=== PATIENT | female | born 1965 ===

== ENCOUNTER 2018-04-28 15:41 | Observation (INO) ==
[2018-04-28] MEDS ORDERED: LIDOCAINE W/ SODIUM BICARB 0.5 ML SYR SUBD PRN (18:11)
[2018-04-28] MEDS ORDERED: HYDROmorphone 2 MG/1 ML IVP PRN (18:11)
--- NOTE | 2018-04-28 18:19 | PDOC ---
HPI - History of Present Illness History of Present Illness: This very nice 51-year-old female with history of alcohol abuse had an admission here earlier in the year for epigastric pain nausea and vomiting. Presented to the [facility] complaining of abdominal pain 9 out of [address] Castaneda called Dr. Bagley for EGD colonoscopy Dr. Bagley I also spoke with Dr. Bagley he said that he has a note on this patient from previous admission where he recommended EGD colonoscopy as an outpatient and this is not the treatment for nausea and vomiting she did have a K have a KUB in [place] which was negative. Apparently the patient requested to be transferred to [facility] and insisted with Dr. Castaneda the patient woke up this morning with the abdominal pain nausea and vomiting she stated that she states that really the abdominal pain and never left and she has this constant and not is as bad since last admission. CT scan abdomen and pelvis patient was unable to take by mouth contrast even with the antiemetics she states that this is a hard to live with and that it's affecting her work. Past Medical History Medical History: 1. Alcohol abuse. She lasted a 91 day residential program in [place] and got out in 2011. She's had intermittent problems with relapse since that time. 2. History of methamphetamine abuse. 3. H. pylori infection in the past treated with antibiotics presumably although details are not available for review. 4. Osteoarthritis Surgical History: 1. 2. 2. Ganglion cyst on right hand removed. 3. Tonsillectomy. 4. Cholecystectomy Pertinent Family History: Significant for colon cancer in her mother. She states her family has severe problems with alcoholism in both her parents and her siblings. She has a significant other, Mendoza. Past Social History: Smokes. Recently relapsed and started drinking alcohol a week ago. 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 Tobacco Use: Current Every Day Smoker Past Medical History Medical History: 1. Alcohol abuse. She lasted a 91 day residential program in [place] and got out in 2011. She's had intermittent problems with relapse since that time. 2. History of methamphetamine abuse. 3. H. pylori infection in the past treated with antibiotics presumably although details are not available for review. 4. Osteoarthritis Surgical History: 1. 2. 2. Ganglion cyst on right hand removed. 3. Tonsillectomy. 4. Cholecystectomy Pertinent Family History: Significant for colon cancer in her mother. She states her family has severe problems with alcoholism in both her parents and her siblings. She has a significant other, Mendoza. Past Social History: Smokes. Recently relapsed and started drinking alcohol a week ago. 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 Tobacco Use: Current Every Day Smoker In the Past 12 Months, Have Used or Abuse Any of the Following Substance: None Medication / Allergies Home Medications: Home Medications 3 Medication Instructions Recorded Confirmed Type Pantoprazole Sodium [Protonix] 40 mg PO DAILY #30 tab 12/05/17 02/07/18 Rx gabapentin 100 mg capsule 300 mg PO BID cap 02/07/18 02/07/18 History Allergies/Adverse Reactions: Allergies 3 Allergy/AdvReac Type Severity Reaction Status Date / Time No Known Allergies Allergy Verified 04/28/18 17:51 Review of Systems - Constitutional Constitutional: REPORTS: Negative System Review - Respiratory Respiratory: DENIES: Negative System Review, Cough, Sputum, Dyspnea At Rest, Dyspnea with Exertion, Pleuritic Pain, Hemoptysis, Wheezing, Other, See HPI - Cardiovascular Cardiovascular: DENIES: Negative System Review, Chest Pain, Edema, Syncope, Palpitations, Orthopnea, Paroxysmal Nocturnal Dyspnea, Other, See HPI - Gastrointestinal Gastrointestinal / Abdominal: REPORTS: Nausea, Vomiting, Abdominal Pain - Genitourinary Genitourinary: DENIES: Negative System Review, Pain, Burning, Hematuria, Incontinence, Urgency, Hesitant Stream, Decreased Stream, Nocutria, Discharge, Sexual Dysfunction, Other, See HPI - Musculoskeletal Musculoskeletal: DENIES: Negative System Review, Back Pain, Neck Pain, Joint Swelling, Calf Pain, Muscle Pain, Cramping, Joint Pain - Hands, Joint Pain - Elbows, Joint Pain - Shoulders, Joint Pain - Hips, Joint Pain - Knees, Joint Pain - Feet, AM Stiffness, Other, See HPI Exam - Vitals Vital Signs: Vital Signs Temperature 97 F Temperature Source Temporal Artery Scan Pulse Rate [Pulse Oximeter] 82 Pulse Rate 82 Respiratory Rate 18 Blood Pressure [Left Arm] 144/67 Blood Pressure 144/67 Pulse Ox 95 Oxygen Delivery Method Room Air Height 5 ft 2 in Weight 154 lb 11.2 oz - General General Appearance: No Acute Distress - Respiratory Respiratory Exam: POSITIVE: Clear to Auscultation - Bilaterally, Breathing Non Labored, Normal To Percussion, Normal to Percussion and Palpation - Cardiovascular Cardiovascular Exam: POSITIVE: RRR, No Murmur, No Clicks, No Gallops, No Rubs, PMI Non-Displaced - GI/Abdominal Additional GI/Abdominal Exam Details: No guarding or rebound some pain in the epigastric area and left lower quadrant on deep palpation - Extremities Extremities Exam: POSITIVE: No Clubbing Present, No Edema Present, No Cyanosis Present Results - Labs CBC and BMP: 04/28/18 18:35 04/28/18 18:35 Assessment and Plan - Patient Problems (1) Abdominal pain Current Visit: Yes Status: Acute Comment: Labs are normal amylase lipase and white count CT scan abdomen and pelvis no acute findings. This can definitely represent chronic pancreatitis the way is presenting with a differential diagnosis of gastritis. I will start the patient on pain medication IV fluids and antiemetics will order a small bowel follow-through for tomorrow consult surgery might also consider MRCP Code(s): R10.9 - Unspecified abdominal pain
[2018-04-28] MEDS: PANTOPRAZOLE IV 40 MG VIAL IVP SCH (18:34)
[2018-04-28] MEDS: 1/2NS + 20mEq KCL 1,000 ML PRIMARY IV SCH (18:35)
[2018-04-28 18:40] LABS: BASOPHILS # (AUTO) 0.03 10*3/UL; BASOPHILS % (AUTO) 0.5 % (0-1); EOSINOPHILS # (AUTO) 0.14 10*3/UL; EOSINOPHILS % (AUTO) 2.4 % (0-8); Hematocrit [HCT] 40.1 % (37.0-47.0); Hemoglobin [HGB] 13.5 g/dL (12.0-16.0); LYMPHOCYTES # (AUTO) 2.15 10*3/uL; MEAN CORPUSCULAR HEMOGLOBIN 32.9 PG (27-31); MEAN CORPUSCULAR HGB CONC 33.7 g/dL (33-37); MEAN CORPUSCULAR VOLUME 97.8 FL (81-99); MEAN PLATELET VOLUME 8.5 FL (7.4-12.2); MONOCYTES # (AUTO) 0.49 10*3/UL (0.3-0.8); MONOCYTES % (AUTO) 8.2 % (5-15); NEUTROPHILS # (AUTO) 3.12 10*3/UL; NEUTROPHILS % (AUTO) 52.5 % (50-80)
[2018-04-28 18:57] LABS: PLATELET MORPHOLOGY COMMENT NORMAL MORPHOLOGY (NORM); RBC MORPHOLOGY COMMENT NORMAL MORPHOLOGY (NORM); WBC MORPHOLOGY COMMENT NORMAL MORPHOLOGY (NORM)
[2018-04-28 18:58] LABS: BLOOD UREA NITROGEN 6 mg/dL (7-22)
[2018-04-28] MEDS: NICOTINE 21 MG /DAY PATCH TRANSDERM SCH (19:07)
[2018-04-28] MEDS ORDERED: HYDROmorphone 2 MG/1 ML IVP ONE (19:13)
[2018-04-28 19:40] LABS: BILIRUBIN,URINE SMALL (NEG); CLARITY,URINE CLEAR (CLEAR); COLOR,URINE YELLOW (Y); GLUCOSE, URINE (UA) NEGATIVE (NEG); OCCULT BLOOD,URINE NEGATIVE (NEG); PROTEIN,URINE NEGATIVE (NEG)
[2018-04-28 19:48] LABS: URINE SAMPLE TYPE VOIDED SPECIMEN; URINE SPECIFIC GRAVITY - MAN 1.015
[2018-04-28 19:49] LABS: SQUAMOUS EPITHELIAL CELL,UR MODERATE; URINE CASTS FEW
[2018-04-28 19:51] LABS: AMPHETAMINE SCREEN NEGATIVE (NEG); CANNABINOID SCREEN,URINE NEGATIVE (NEG); COCAINE SCREEN NEGATIVE (NEG); METHADONE URINE SCREEN NEGATIVE (NEG); METHAMPHETAMINES SCREEN,URINE NEGATIVE (NEG); OPIATE SCREEN,URINE POSITIVE (NEG)
[2018-04-28] MEDS: ONDANSETRON 4 MG/2 ML VIAL IVP PRN (20:14)
--- NOTE | 2018-04-28 20:51 | DI ---
EXAM: CT Abdomen and Pelvis With Intravenous Contrast CLINICAL HISTORY: Abdominal pain TECHNIQUE: Axial computed tomography images of the abdomen and pelvis with intravenous contrast. COMPARISON: CT abdomen and pelvis dated 12/02/2017 FINDINGS: Lung bases: Unremarkable. No mass. No consolidation. ABDOMEN: Liver: Unremarkable. Gallbladder and bile ducts: Intra-and extrahepatic bile duct dilatation likely secondary to prior cholecystectomy. Pancreas: Unremarkable. Spleen: Unremarkable. Adrenals: Unremarkable. Kidneys and ureters: Unremarkable. Stomach and bowel: Noninflamed colonic diverticulosis. PELVIS: Appendix: Appendix is unremarkable. Bladder: Unremarkable. Reproductive: Unremarkable as visualized. ABDOMEN and PELVIS: Intraperitoneal space: Unremarkable. Bones/joints: Degenerative changes of the osseous structures. No acute fracture. No dislocation. Soft tissues: Unremarkable. Vasculature: Unremarkable. No abdominal aortic aneurysm. Lymph nodes: Unremarkable. IMPRESSION: No acute findings.
[2018-04-28] MEDS ORDERED: Magnesium Sulfate 2gm (Premix) 2 GM/50 ML BAG IV ONE (21:26)
[2018-04-28] MEDS: GABAPENTIN 100 MG CAPSULE PO SCH (22:29)
[2018-04-28] MEDS: HYDROmorphone 2 MG/1 ML IVP PRN (22:40)
[2018-04-28] MEDS: Metoclopramide Inj 10 MG/2 ML VIAL IVP PRN (22:40)
[2018-04-28] MEDS: LORazepam 2 MG/1 ML VIAL IVP PRN (22:45)
[2018-04-29] MEDS: ONDANSETRON 4 MG/2 ML VIAL IVP PRN ×2 (02:58→11:46)
[2018-04-29] MEDS: 1/2NS + 20mEq KCL 1,000 ML PRIMARY IV SCH ×3 (02:59→20:02)
[2018-04-29] MEDS: HYDROmorphone 2 MG/1 ML IVP PRN ×2 (02:59→07:19)
[2018-04-29 04:41] LABS: LIPASE 54 IU/L (23-300)
[2018-04-29] MEDS: LORazepam 2 MG/1 ML VIAL IVP PRN ×3 (07:19→22:24)
[2018-04-29] MEDS: PANTOPRAZOLE IV 40 MG VIAL IVP SCH (09:27)
[2018-04-29] MEDS: GABAPENTIN 100 MG CAPSULE PO SCH ×2 (09:27→20:02)
[2018-04-29 09:38] LABS: BASOPHILS # (AUTO) 0.02 10*3/UL; BASOPHILS % (AUTO) 0.2 % (0-1); EOSINOPHILS # (AUTO) 0.11 10*3/UL; EOSINOPHILS % (AUTO) 1.3 % (0-8); Hematocrit [HCT] 39.5 % (37.0-47.0); Hemoglobin [HGB] 13.4 g/dL (12.0-16.0); LYMPHOCYTES # (AUTO) 1.85 10*3/uL; MEAN CORPUSCULAR HEMOGLOBIN 33.3 PG (27-31); MEAN CORPUSCULAR HGB CONC 33.9 g/dL (33-37); MEAN PLATELET VOLUME 8.7 FL (7.4-12.2); MONOCYTES # (AUTO) 0.61 10*3/UL (0.3-0.8); MONOCYTES % (AUTO) 7.1 % (5-15); NEUTROPHILS # (AUTO) 5.94 10*3/UL; NEUTROPHILS % (AUTO) 69.6 % (50-80); RED BLOOD COUNT 4.03 10^6/uL (4.20-5.40)
[2018-04-29 09:39] LABS: PLATELET MORPHOLOGY COMMENT NORMAL MORPHOLOGY (NORM); RBC MORPHOLOGY COMMENT NORMAL MORPHOLOGY (NORM); WBC MORPHOLOGY COMMENT NORMAL MORPHOLOGY (NORM)
[2018-04-29 09:48] LABS: BLOOD UREA NITROGEN 3 mg/dL (7-22)
[2018-04-29] MEDS ORDERED: Influenza 18-19 Vaccine (6mo+) 60 MCG/0.5 ML SYRINGE IM ONE (10:51)
--- NOTE | 2018-04-29 11:31 | PDOC(PROG) ---
Interval History: Patient states that she is feeling better nausea and vomiting have subsided she states that the Ativan really helped with this no chest pain no shortness of breath Objective : Data - Labs CBC and BMP: 04/29/18 09:32 04/29/18 09:32 Objective : Exam - General General Appearance: Cooperative - Respiratory Respiratory Exam: Clear to Auscultation - Bilaterally, Breathing Non Labored, Normal To Percussion, Normal to Percussion and Palpation - Cardiovascular Cardiovascular Exam: RRR, No Murmur, No Clicks, No Gallops, No Rubs, PMI Non- Displaced - GI/Abdominal GI/Abdominal Exam: Normal Bowel Sounds, Non Tender, Non Distended, Soft, No Masses, No Hepatomegaly, No Splenomegaly, No Organomegaly - Extremities Extremities Exam: No Clubbing Present, No Edema Present, No Cyanosis Present Assessment and Plan - Patient Problems (1) Abdominal pain Current Visit: Yes Status: Acute Comment: On physical exam no abdominal pain noted improving continue IV fluids clear liquids unable to do MRI of her pancreas this unable to do small bowel follow-through at this facility Code(s): R10.9 - Unspecified abdominal pain (2) Anxiety Current Visit: Yes Status: Acute Comment: Continue Ativan stop narcotics Code(s): F41.9 - Anxiety disorder, unspecified
[2018-04-29] MEDS ORDERED: Belladon/PHENobarbital Elixir 10 ML, Lidocaine Viscous Liquid 2% 15 ML, Mag Hyd/Al Hyd/... PO ONE ×3 (16:43)
[2018-04-29] MEDS ORDERED: LIDOCAINE 2% VISCOUS(20 MG/1 ML) - 15 ML UD CUP PO ONE (17:58)
[2018-04-29] MEDS ORDERED: BELLADONNA ALKALOIDS/PHENOBARB 32.4 MG/10 ML PO ONE (17:58)
[2018-04-29] MEDS ORDERED: MAG HYDROX/AL HYDROX/SIMETH 30 ML SUSP PO ONE (17:59)
[2018-04-29] MEDS: NICOTINE 21 MG /DAY PATCH TRANSDERM SCH (20:02)
[2018-04-30] MEDS: 1/2NS + 20mEq KCL 1,000 ML PRIMARY IV SCH (04:23)
[2018-04-30] MEDS: Metoclopramide Inj 10 MG/2 ML VIAL IVP PRN ×2 (07:01→18:33)
[2018-04-30] MEDS ORDERED: HYDROmorphone 2 MG/1 ML IVP PRN (08:49)
[2018-04-30] MEDS: PANTOPRAZOLE IV 40 MG VIAL IVP SCH (08:56)
[2018-04-30] MEDS: GABAPENTIN 100 MG CAPSULE PO SCH ×2 (08:56→20:13)
[2018-04-30] MEDS ORDERED: Lactated Ringers 1,000 ML PRIMARY IV SCH (09:15)
--- NOTE | 2018-04-30 11:47 | PDOC(PROG) ---
Interval History: Nausea and vomiting is resolved patient tolerating clears she states that she has still some mild pain in the left lower quadrant and negative on physical exam Objective : Data - Labs CBC and BMP: 04/29/18 09:32 04/29/18 09:32 Objective : Exam - General General Appearance: Cooperative - Respiratory Respiratory Exam: Clear to Auscultation - Bilaterally, Breathing Non Labored, Normal To Percussion, Normal to Percussion and Palpation - Cardiovascular Cardiovascular Exam: RRR, No Murmur, No Clicks, No Gallops, No Rubs, PMI Non- Displaced - GI/Abdominal GI/Abdominal Exam: Normal Bowel Sounds, Non Tender, Non Distended, Soft, No Masses, No Hepatomegaly, No Splenomegaly, No Organomegaly Assessment and Plan - Patient Problems (1) Abdominal pain Current Visit: Yes Status: Acute Comment: Slowly resolving left lower quadrant may be the patient has chronic pancreatitis will probably benefit from MRCP but I cannot do it until Tuesday I will add pancreatic enzymes decreased I Jennifer to 1 mg every 4 hours Code(s): R10.9 - Unspecified abdominal pain (2) Anxiety Current Visit: Yes Status: Acute Comment: Resolved I did stop the Ativan Code(s): F41.9 - Anxiety disorder, unspecified
[2018-04-30] MEDS: HYDROmorphone 2 MG/1 ML IVP PRN ×2 (12:15→18:33)
[2018-04-30] MEDS: LIPASE/PROTEASE/AMYLASE 1 EACH CAPSULE PO SCH ×2 (14:06→17:23)
[2018-04-30] MEDS: NICOTINE 21 MG /DAY PATCH TRANSDERM SCH (18:33)
[2018-05-01] MEDS: HYDROmorphone 2 MG/1 ML IVP PRN ×3 (01:34→13:37)
[2018-05-01] MEDS: LIPASE/PROTEASE/AMYLASE 1 EACH CAPSULE PO SCH ×2 (07:23→12:12)
[2018-05-01] MEDS: PANTOPRAZOLE IV 40 MG VIAL IVP SCH (08:26)
[2018-05-01] MEDS: GABAPENTIN 100 MG CAPSULE PO SCH (09:11)
[2018-05-01 10:49] VITALS: RESP 16; O2SAT 97
--- NOTE | 2018-05-01 10:50 | DI ---
MRI Abdomen WO Contrast,05/01/2018 7:00 AM: Clinical History: Abdominal pain with question of obstruction of the common bile duct. Previous Exam: CT abdomen pelvis performed April 28, 2018 Findings: Multiplanar MR images are obtained through the abdomen following MRCP protocol, and demonstrate a com mon bile duct measuring 8.4 mm in diameter. At the distal common bile duct, there is a small truncati on deformity near its attachment on the small bowel. There is no abnormal tapering however, there is no intrahepatic biliary ductal dilation. The liver is grossly normal. The kidneys are unremarkable. The adrenals are not well seen but are grossly normal. The pancreas is also normal. There is no free fluid. Skeletal structures are unremarkable. The large and small bowel loops are not well evaluated. The stomach is not well seen. There is no lymphadenopathy identified. Impression: 1. Prominent common bile duct measuring approximately 8.3 mm with some truncation of the distal inser tion on the small bowel without pancreatic ductal dilation. Cannot rule out the possibility of a dist al occlusive process. Consider endoscopy to evaluate the ampulla. ERCP may also be appropriate.
[2018-05-01] MEDS: ONDANSETRON 4 MG/2 ML VIAL IVP PRN (11:40)
[2018-05-01 11:45] VITALS: BP 135/73; TEMP 97.1
[2018-05-01] MEDS ORDERED: DOXYCYCLINE HYCLATE 100 MG CAPSULE PO ONE (12:14)
[2018-05-01] MEDS ORDERED: D5-1/2NS 1,000 ML PRIMARY IV SCH (12:15)
--- NOTE | 2018-05-01 12:26 | DI ---
XR UPPER GI W/SBFT,05/01/2018 7:00 AM: Clinical History: Abdominal pain and vomiting with nausea. Previous Exam: MRI abdomen performed May 01, [address] abdomen pelvis performed April 28, 2018 Findings: Multiple images are obtained of an upper gastrointestinal series and small bowel follow-through, and demonstrate normal course, caliber and mucosal pattern of the esophagus. The stomach is grossly normal with normal size, shape, distention and mucosal pattern. Slight indentation on the second portion of the duodenum seen on several of the images which does not appear to represent peristalsis, but appears to represent a true filling defect. This appears to hav e been seen in retrospect on the CT scan as well. This was also seen on the MRI of the abdomen. The small bowel loops demonstrate normal course, caliber and mucosal pattern without areas of strictu re or or dilation. Impression: Filling defect within the second portion of the duodenum. Recommend endoscopy for further evaluation.
[2018-05-01] MEDS: Metoclopramide Inj 10 MG/2 ML VIAL IVP PRN (13:17)
--- NOTE | 2018-05-01 13:30 | DI ---
[facility],05/01/2018 12:10 PM: Clinical History: Right upper deltoid erythema. Question abscess. Previous Exam: None at this facility. Findings: Multiple grayscale and color Doppler sonographic images are obtained of the soft tissues of the right upper arm in the region of a palpable erythematous mass. There is no evidence of fluid collection. T he scan is unremarkable. The underlying musculature is unremarkable. Impression: No evidence of abscess in the region of the erythematous mass.
--- NOTE | 2018-05-01 14:17 | DCSUMMARY ---
Hospitalization Summary Admit Date: 04/28/2018 Discharge Date: 05/01/18 Primary Diagnosis:: possible common bile duct obstruction Secondary Diagnosis:: Nausea and vomiting, intractable Hospital Course: This very pleasant 52-year-old female with prior history of alcohol abuse and methamphetamine abuse. She presented with nausea and vomiting in [place], was transferred here for further evaluation and care. The patient was admitted, an abdominal CT scan was done and it was negative for any acute pathologies. The patient later had an abdominal MRI scan which showed a possible dilated common bile duct at 8.3 mm although she is postcholecystectomy. It appeared that there may be a truncated area at the ampulla as well. It is not clear if there may be an underlying mass in the duodenum around the ampulla. A small bowel follow-through was abnormal in the duodenum. Given all these findings, I felt that it would be best to get the patient with a anchorman for possible endoscopy and even possible ERCP. I spoke with the anchorman in [place] and along with the hospital stay were willing to accept the patient. Incidentally, the patient has a circumscribed about baseball size, well demarcated erythematous location in the deltoid region on the right upper extremity. She states that this is been present for the last 2 days. No fevers. No chills. [place] around [place] animals including cats, cows, horses. She does not recall a tick bite, but it sure looks suspicious for something of that nature so I sent off titers for Lyme disease and [place] spotted fever and have started the patient on doxycycline empirically. It could be a localized cellulitis is well although that seems a little less likely. We did an ultrasound of the soft tissue area and preliminarily, there is no evidence of abscess or significant soft tissue swelling. The patient was okay with going to [place]. I feel that she continues to need fluids and we'll send her up by ambulance as she has had intractable nausea and vomiting that is difficult to control. No complaint of chest pain or shortness breath. Assessment and Plan: 1. As per discharge assessments noted 2. Disposition: [facility] 3. Condition on discharge, stable but condition could deteriorate, but patient is been stably so best of our ability. 4. Diet: I spoke with gastroenterology in [place], and they were okay with the patient going on clear liquids today. 5. Activities: resume normal activities 6. Follow-Up: 1. See primary care physician in [place], [place], 7 days post discharge 2. 7. Medications at the Time of Discharge: Active Medications Generic Name Dose Route Start Last Admin Trade Name Freq PRN Reason Stop Dose Admin Lipase/Protease/Amylase 1 cap 04/30/18 12:00 05/01/18 12:12 Creon 75936 Cap PO Not Given TID MEALS REGGIE Doxycycline Hyclate 100 mg 05/01/18 21:00 Vibramycin PO BID REGGIE Gabapentin 300 mg 05/01/18 21:00 Neurontin PO BID REGGIE Hydromorphone HCl 1 mg 04/30/18 11:17 05/01/18 13:37 Dilaudid Inj IVP 1 mg Q4H PRN Administration Pain Dextrose/Sodium Chloride 1,000 mls @ 125 mls/hr 05/01/18 12:15 05/01/18 12:21 Dextrose 5%-1/2ns PRIMARY IV 125 mls/hr .Q8H REGGIE Administration Lidocaine HCl 0.5 ml 04/28/18 18:11 Lidocaine Buffered Inj SUBD ONCE PRN IV Starts Metoclopramide HCl 10 mg 04/28/18 22:33 05/01/18 13:17 Reglan Inj IVP 10 mg Q6H PRN Administration NAUSEA / VOMITING Nicotine 1 patch 04/28/18 19:00 04/30/18 18:33 Nicoderm Cq 21mg Patch TRANSDERM 1 patch DAILY@1900 REGGIE Administration Non-Formulary Medication 1 05/01/18 19:00 Remove Patch TRANSDERM DAILY@1900 REGGIE Ondansetron HCl 4 mg 04/28/18 18:11 05/01/18 11:40 Zofran Inj IVP 4 mg Q6H PRN Administration NAUSEA / VOMITING Pantoprazole Sodium 40 mg 04/28/18 18:15 05/01/18 08:26 Protonix Inj IVP 40 mg DAILY REGGIE Administration 8. Time, care, counseling and coordination of care for this discharge is greater than 30 minutes. Exam - Vitals Vital Signs: Vital Signs Temperature 97.1 F Temperature Source Tympanic Pulse Rate [Apical] 84 Pulse Rate [Pulse Oximeter] 77 Pulse Rate 82 Respiratory Rate 16 Blood Pressure [Left Arm] 135/73 Blood Pressure 144/67 Pulse Ox 97 Oxygen Flow Rate 2 Oxygen Delivery Method Nasal Cannula Height 5 ft 2 in Weight 156 lb 6 oz - General General Appearance: No Acute Distress, Cooperative - Head Head Exam: Normal Inspection, Normocephalic, Atraumatic - Eye Eye Exam: POSITIVE: No Scleral Icterus - ENT ENT Exam: POSITIVE: Mucous Membranes Moist - Respiratory Respiratory Exam: POSITIVE: Clear to Auscultation - Bilaterally, Breathing Non Labored - Cardiovascular Cardiovascular Exam: POSITIVE: RRR, No Murmur, No Clicks, No Gallops, No Rubs, No JVD - GI/Abdominal GI/Abdominal Exam: POSITIVE: Normal Bowel Sounds, Non Tender, Non Distended, Soft - Rectal Rectal Exam: POSITIVE: Deferred - External Exam: POSITIVE: Deferred Exam: POSITIVE: Deferred - Extremities Extremities Exam: POSITIVE: No Clubbing Present, No Edema Present, No Cyanosis Present Additional Extremities Exam Details: Circumscribed area on the right deltoid region that looks insistent with baseball-sized erythematous patch, morbilliform, could be cellulitis versus tick bite. She did not have immunizations here so it is not a secondary reaction to that. - Neurological Neurological Exam: POSITIVE: Alert, Oriented x 3, No Facial Droop, Speech Intact / Clear, Moves All Extremities Equally - Psychiatric Psychiatric Exam: POSITIVE: Normal Affect, Normal Mood Data Peritnent Studies: 04/29/18 04/29/18 04/29/18 04:26 09:32 09:32 WBC 8.55 Hgb 13.4 Hct 39.5 Plt Count 258 Sodium 135 D Potassium 4.4 Chloride 107 Carbon Dioxide 25 Anion Gap 3 L BUN 3 L Creatinine 0.3 L Estimated GFR > 60 BUN/Creatinine Ratio 10.00 Glucose 87 Calculated Osmolality 275.0 Calcium 8.6 L Total Bilirubin 0.7 AST 44 H ALT 29 Alkaline Phosphatase 36 L Total Protein 6.6 Albumin 4.0 Globulin 2.6 Albumin/Globulin Ratio 1.50 Amylase 46 Lipase 54 Procedures: [address] [facility] [place] [address] PH: DD: [phone] FAX: [phone] ~DIAGNOSTIC IMAGING REPORT~ Patient: Swapna Li : 1965 Sex: F Age: 52 Exam Name: XR UPPER GI W/SBFT Exam Date: 05/01/18 Report # : [id number] CPT Code: 45295 EMR/MR #: [id number] Ordering: RALPH POLLACK Admiting: RALPH POLLACK MD. Primary: NONE,NONE Attending: RALPH POLLACK MD. Signed XR UPPER GI W/SBFT,05/01/2018 7:00 AM: Clinical History: Abdominal pain and vomiting with nausea. Previous Exam: MRI abdomen performed May 01, [address] abdomen pelvis performed April 28, 2018 Findings: Multiple images are obtained of an upper gastrointestinal series and small bowel follow-through, and demonstrate normal course, caliber and mucosal pattern of the esophagus. The stomach is grossly normal with normal size, shape, distention and mucosal pattern. Slight indentation on the second portion of the duodenum seen on several of the images which does not appear to represent peristalsis, but appears to represent a true filling defect. This appears to have been seen in retrospect on the CT scan as well. This was also seen on the MRI of the abdomen. The small bowel loops demonstrate normal course, caliber and mucosal pattern without areas of stricture or or dilation. Impression: Filling defect within the second portion of the duodenum. Recommend endoscopy for further evaluation. Dictated By: 05/01/18 1218 MAIDA RAMIRES MD. Signed By: 05/01/18 1226 MAIDA RAMIRES MD. [address] [facility] [place] [address] PH: DD: [phone] FAX: [phone] ~DIAGNOSTIC IMAGING REPORT~ Patient: Swapna Li : 1965 Sex: F Age: 52 Exam Name: MRI Abdomen WO Contrast Exam Date: 05/01/18 Report # : [id number] CPT Code: 91760 EMR/MR #: [id number] Ordering: CLAY ODNNELLY Admiting: RALPH POLLACK MD. Primary: NONE,NONE Attending: RALPH POLLACK MD. Signed MRI Abdomen WO Contrast,05/01/2018 7:00 AM: Clinical History: Abdominal pain with question of obstruction of the common bile duct. Previous Exam: CT abdomen pelvis performed April 28, 2018 Findings: Multiplanar MR images are obtained through the abdomen following MRCP protocol, and demonstrate a common bile duct measuring 8.4 mm in diameter. At the distal common bile duct, there is a small truncation deformity near its attachment on the small bowel. There is no abnormal tapering however, there is no intrahepatic biliary ductal dilation. The liver is grossly normal. The kidneys are unremarkable. The adrenals are not well seen but are grossly normal. The pancreas is also normal. There is no free fluid. Skeletal structures are unremarkable. The large and small bowel loops are not well evaluated. The stomach is not well seen. There is no lymphadenopathy identified. Impression: 1. Prominent common bile duct measuring approximately 8.3 mm with some truncation of the distal insertion on the small bowel without pancreatic ductal dilation. Cannot rule out the possibility of a distal occlusive process. Consider endoscopy to evaluate the ampulla. ERCP may also be appropriate. Dictated By: 05/01/18 1019 MAIDA RAMIRES MD. Signed By: 05/01/18 1050 MAIDA RAMIRES MD. [address] [facility] [place] [address] PH: DD: [phone] FAX: [phone] ~DIAGNOSTIC IMAGING REPORT~ Patient: Swapna Li : 1965 Sex: F Age: 52 Exam Name: CT Abdomen/Pelvis W Contrast Exam Date: 04/28/18 Report # : [id number] CPT Code: 09035 EMR/MR #: [id number] Ordering: RALPH POLLACK Admiting: RALPH POLLACK MD. Primary: NONE,NONE Attending: RALPH POLLACK MD. Signed EXAM: CT Abdomen and Pelvis With Intravenous Contrast CLINICAL HISTORY: Abdominal pain TECHNIQUE: Axial computed tomography images of the abdomen and pelvis with intravenous contrast. COMPARISON: CT abdomen and pelvis dated 12/02/2017 FINDINGS: Lung bases: Unremarkable. No mass. No consolidation. ABDOMEN: Liver: Unremarkable. Gallbladder and bile ducts: Intra-and extrahepatic bile duct dilatation likely secondary to prior cholecystectomy. Pancreas: Unremarkable. Spleen: Unremarkable. Adrenals: Unremarkable. Kidneys and ureters: Unremarkable. Stomach and bowel: Noninflamed colonic diverticulosis. PELVIS: Appendix: Appendix is unremarkable. Bladder: Unremarkable. Reproductive: Unremarkable as visualized. ABDOMEN and PELVIS: Intraperitoneal space: Unremarkable. Bones/joints: Degenerative changes of the osseous structures. No acute fracture. No dislocation. Soft tissues: Unremarkable. Vasculature: Unremarkable. No abdominal aortic aneurysm. Lymph nodes: Unremarkable. IMPRESSION: No acute findings. Dictated By: Goran Tristan Ashley MD Signed By: 04/28/182050 Goran Ashley MD Patient Problems - Patient Problem List (1) Common bile duct (CBD) obstruction Current Visit: Yes Status: Acute Code(s): K83.1 - Obstruction of bile duct Category: Medical (2) Mucosal abnormality of duodenum Current Visit: Yes Status: Acute Code(s): K31.9 - Disease of stomach and duodenum, unspecified Category: Medical (3) Nausea and vomiting Current Visit: Yes Status: Acute Code(s): R11.2 - Nausea with vomiting, unspecified Qualifiers: Vomiting type: unspecified Vomiting Intractability: intractable Qualified Code(s): R11.2 - Nausea with vomiting, unspecified Category: Medical (4) Abdominal pain Current Visit: Yes Status: Acute Code(s): R10.9 - Unspecified abdominal pain Qualifiers: Abdominal location: epigastric Qualified Code(s): R10.13 - Epigastric pain Category: Medical
[2018-05-01] MEDS ORDERED: Patch Removal PATCH TRANSDERM SCH (19:00)
[2018-05-01] MEDS ORDERED: GABAPENTIN 300 MG CAPSULE PO SCH (21:00)
[2018-05-01] MEDS ORDERED: DOXYCYCLINE HYCLATE 100 MG CAPSULE PO SCH (21:00)
[2018-05-03 14:42] LABS: EHFLICHIA CHAFFEENSIS IGG <1:64 titer (<1:64)
== END 2018-05-01 15:03 | disposition short-term general hospital (02) ==
LOC: MED/SURG
PROVIDERS: ADMIT Internal Medicine; ATTEND Internal Medicine